=== PATIENT | male | born 1945 | race Caucasian/White ===

== ENCOUNTER 2017-05-05 19:56 | Emergency (ER) | payer MEDICARE, OTHER ==
[2017-05-05 20:03] VITALS: BP 183/77; PULSE 65; RESP 16; TEMP 98.7; O2SAT 98
--- NOTE | 2017-05-05 21:22 | ED PDOC ---
Lower Extremity Pain/Injury Time Seen by Provider: 05/05/17 20:07 Chief Complaint (Nursing): Lower Extremity Problem/Injury Chief Complaint (Provider): Lower leg pain History Per: Patient History/Exam Limitations: no limitations Additional Complaint(s): 71 y/o male presents to the emergency department with a complaint of bilateral leg pain and cramps for years. States cramps come and go and usualy requires an injection for pain. Denies chest pain, shortness of breath, trauma, fever, chills, or rash to the skin. Past Medical History Reviewed: Historical Data, Nursing Documentation, Vital Signs Vital Signs: Last Vital Signs Temp 98.7 F 05/05/17 19:59 Pulse 65 05/05/17 19:59 Resp 16 05/05/17 19:59 BP 183/77 H 05/05/17 19:59 Pulse Ox 98 05/05/17 19:59 - Medical History PMH: Back Problems, CAD, Depression, Diabetes, HTN - Surgical History Surgical History: Appendectomy - Family History Family History: States: Unknown Family Hx - Social History Current smoker - smoking cessation education provided: No Alcohol: None Drugs: Denies - Immunization History Hx Tetanus Toxoid Vaccination: Yes Hx Influenza Vaccination: Yes Hx Pneumococcal Vaccination: Yes - Home Medications Home Medications: Ambulatory Orders Medication Instructions Recorded Desonide 0.05 TP BID 04/09/13 Furosemide [Lasix] 40 mg PO DAILY 04/09/13 Gabapentin 600 mg PO BID 04/09/13 Insulin Glargine, Recombina 35 unit SC HS 04/09/13 [Lantus] Metformin Hydrochloride [Metformin] 1,000 mg PO BID 04/09/13 Metoprolol Succinate [Toprol XL] 25 mg PO BID 04/09/13 Polyethylene Glycol/Polyvinyl 1 drop OP PRN PRN 04/09/13 [Artificial Tears] Spironolactone 50 mg PO 04/09/13 Tramadol Hydrochloride [Tramadol] 50 mg PO BID PRN 04/09/13 oxyCODONE/Acetaminophen [Percocet 1 tab PO Q8H PRN #10 tab 10/01/14 5/325 mg Tab] - Allergies Allergies/Adverse Reactions: Allergies Allergy/AdvReac Type Severity Reaction Status Date / Time No Known Allergies Allergy Unverified 04/09/13 10:37 Review of Systems ROS Statement: Except As Marked, All Systems Reviewed And Found Negative (As per HPI, otherwise negative) Constitutional: Negative for: Fever, Chills, Other (Trauma) Cardiovascular: Negative for: Chest Pain Respiratory: Negative for: Shortness of Breath Musculoskeletal: Positive for: Leg Pain (b/l leg cramps) Skin: Negative for: Rash Physical Exam - Reviewed Nursing Documentation Reviewed: Yes Vital Signs Reviewed: Yes - Physical Exam Appears: Positive for: Non-toxic, No Acute Distress Head Exam: Positive for: ATRAUMATIC, NORMAL INSPECTION, NORMOCEPHALIC Extremity: Positive for: Normal ROM (Legs appeared normal bilaterally). Negative for: Tenderness, Other (Negative homans sign) Neurologic/Psych: Positive for: Alert, Oriented (X3) - ECG O2 Sat by Pulse Oximetry: 98 (RA) Pulse Ox Interpretation: Normal Medical Decision Making Medical Decision Making: Time: 2046 Initial Impression: Chronic leg cramping. No signs of DVT Initial Plan: --Cyclobenzaprine 10 mg PO --Toradol 30 mg IM --Reevaluation --Reevaluation Time: 2153 Upon provider reevaluation patient is feeling better, is medically stable, and requires no further treatment in the ED at this time. Patient will be discharged home. Counseling was provided and all questions were answered regarding diagnosis and need for follow up with referred clinic. There is agreement to discharge plan. Return if symptoms persist or worsen. Clinical Impression: Leg pain Scribe~Attestation: Documented by Pavithra Colvin, acting as a scribe for Prieto Lozano MD. Provider Scribe~Attestation: All medical record entries made by the Scribe were at my direction and personally dictated by me. I have reviewed the chart and agree that the record accurately reflects my personal performance of the history, physical exam, medical decision making, and the department course for this patient. I have also personally directed, reviewed, and agree with the discharge instructions and disposition. Disposition - Clinical Impression Clinical Impression: Leg pain - Patient ED Disposition Is Patient to be Admitted: No Counseled Patient/Family Regarding: Diagnosis, Need For Followup - Disposition Referrals: Reny Garcia [Outside] Disposition: Routine/Home Disposition Time: 21:54 Condition: STABLE Instructions: Chronic Pain (ED) Forms: [employer] (Setswana) Print Language: GERMAN
== END 2017-05-05 22:25 | disposition home or self-care (01) ==
LOC: H.ER 19:56
DX: M79.606 Pain in leg, unspecified (principal); G89.4 Chronic pain syndrome; E11.9 Type 2 diabetes mellitus without complications; Z79.4 Long term (current) use of insulin; F32.9 Major depressive disorder, single episode, unspecified; I10 Essential (primary) hypertension; I25.10 Atherosclerotic heart disease of native coronary artery without angina pectoris
CPT/HCPCS: 96372; 99283; J1885